=== PATIENT | male | born 1955 | race Caucasian/White ===

== ENCOUNTER → 2018-01-24 | Outpatient (CLI) | payer OTHER ==
[2018-01-24 14:44] LABS: BLOOD UREA NITROGEN 20 mg/dl (7-18); CALCIUM 8.5 mg/dl (8.5-10.1); CARBON DIOXIDE 29 mmol/L (21-32); CREATININE 1.08 mg/dl (0.60-1.40); GLUCOSE,FASTING 89 mg/dl (70-99); POTASSIUM 3.9 mmol/L (3.5-5.1); SODIUM 140 mmol/L (136-145)
== END | disposition home or self-care (01) ==
LOC: C.LABPBG 08:33
PROVIDERS: ATTEND Internal Medicine Cardiovascular Disease
DX: R07.89 Other chest pain (principal); R06.09 Other forms of dyspnea; R00.2 Palpitations; I51.9 Heart disease, unspecified; I34.0 Nonrheumatic mitral (valve) insufficiency; I36.1 Nonrheumatic tricuspid (valve) insufficiency; R60.0 Localized edema

== ENCOUNTER 2022-04-08 07:45 | Inpatient (IN) ==
[2022-04-08] MEDS ORDERED: PANTOprazole 80 MG in DEXTROSE 5% 100 ML IV ONE (08:01)
[2022-04-08] MEDS ORDERED: PANTOPRAZOLE BOLUS/DRIP 1 EACH IV STA (08:01)
--- NOTE | 2022-04-08 08:04 | Emergency Department Note ---
Impression & Plan GI bleed, Epigastric abdominal pain, Near syncope, Bright red blood per rectum ED Provider Note Name: RAKEL WEATHERS Age: 66 Sex: M Arrives Via: Ambulance Informant: Patient, mother, brother ED Provider: Glynn Tran MD Chief Complaint: Rectal bleeding Impression: As per impressions above Medical Decision Makin-year-old gentleman with a history of heart failure, hypertension arrives for evaluation of bloody stools. He has been having rectal bleeding for the last 12 hours. By exam he has bright red blood per rectum. He is not hypotensive tho ug is complaining some epigastric discomfort. He was empirically given some IV Protonix. Labs were obtained and reveal a anemia without significant drop from previous nor need for transfusion at this time. His CT of the abdomen pelvis reveals no evidence of acute surgical issue though there is what appears to be blood within the rectal vault. I discussed case with medical team who will evaluate and manage further. He did develop a near syncopal event and thus EKG and repeat hemoglobin were obtained which were unremarkable. Symptoms are not consistent with ACS or PE. Prior Medical Record and Triage/Nursing Notes reviewed by Me Additional history obtained from chart and family Differentials:Diverticulosis, AVM, coagulopathy, colitis, inflammatory bowel disease, malignancy, [place] tear, esophagitis, peptic ulcer disease, variceal bleed, gastritis, epistaxis, fissure, hemorrhoids, as well as other pathologies. Vital Signs: reviewed and remarkable for no significant abnormalities Interventions: Protonix IV, normal saline bolus Labs:Reviewed and remarkable for mild anemia Imaging:CT of the abdomen pelvis with IV contrast per radiology blood like products within the rectal vault see full read attached EKG:Per My Interpretation: Indication Weakness: NSR 84 bpm, qtc 444. No Ectopy. No Ischemia. Compared to EKG 08/27/05 non specific t wave depression laterally is new Cardiac/Tele Monitoring: Cardiac Monitoring: An Order was placed for continuous cardiac monitoring. The monitor shows a rate of 80 with a normal sinus rhythm. Consults:Dr Lucille WYNNE Hospitalist Plan: Disposition:Hospitalization. Condition: Good History of Present Illness:66-year-old gentleman arrives for evaluation of rectal bleeding. Patient notes he started having rectal bleeding last night. He has had multiple red bloody stools since the evening last night. Notes increasing epigastric pain throughout the night. Pain is epigastric and does not radiate. He denies any nausea, vomiting, syncope, chest pain, shortness of breath, headache, lightheadedness, back pain, leg swelling, bleeding/bruising other than stool, urinary symptoms, other concerning signs or symptoms. He took no medications prior to arrival. He denies any recent falls, trauma, injuries. He denies any regular alcohol use nor NSAID use. He denies any history of GI bleeding. He had his gallbladder out several years ago. Denies any recent antibiotics. Nothing makes better or worse. Patient is on aspirin 81 mg daily. ROS: See above HPI for pertinent positives & negatives. A total of 10 systems reviewed and were otherwise negative. Past Medical History:Hypertension, heart failure Past Surgical History:Ankle, Gallbladder Family History:Denies medical issues Social History:Lives with his mother, no smoking, no drug use, occasional alcohol use Home Medications:Aspirin, carvedilol, Centrum, furosemide, Lasix Allergies:NKDA Vitals:Blood Pressure: 126/84, Pulse 87, RR 19, T 36.6C, O2 98% on RA Physical Exam: GENERAL: Patient is anxious appearing and in mild distress. EYES: No scleral icterus, unremarkable pupils. ENT: Mucous membranes moist, no nasal congestion. NECK: No masses appreciated, nomeningismus, trachea is midline. RESPIRATORY: No dyspnea. Clear to auscultation and equal bilaterally. No wheeze, no rhonchi. CARDIOVASCULAR: Regular rate and rhythm.No murmurs, rubs, gallops appreciated. GASTROINTESTINAL: Mild epigastric TTP, Abdomen soft, non-tender, no peritonitis.Bowel sounds positive.No masses appreciated. RECTAL: Normal perirectal, no hemorrhoid externally. Large amount bright red blood in rectal vault. Enlarged firm non-tender prostate BACK: No midline tenderness, no CVA tenderness EXTREMITIES: Normal motion all extremities, no cyanosis, no edema. NEUROLOGIC: Alert and oriented, no acute motor or sensory deficits, no focal weakness, cranial nerves grossly intact. SKIN: No rash, no jaundice, no diaphoresis. PSYCH: Appropriate GCS: 15 ED Course: Times/Reassessments: Patient stable throughout most stated did have a bowel movement where he had a near syncopal event was diaphoretic and looked quite unwell. He was given a liter fluid EKG was obtained and he responded quickly to fluids feeling better. Glynn Tran MD Past Med/Surg History Surgical History Hx of cholecystectomy Family History Mother No problems noted. Denies family history of Clotting disorder Colorectal cancer Cancer Colonic polyp Social History Smoking Status: Never smoker Second Hand Exposure: No; Hx Alcohol Use: No Hx Substance Use: No Preferred Language: Bruneian Communication Ability: Impaired Insurance Producer Required: No Beliefs That Will Affect Care: None Current Living Situation: Parent Feels Safe at Home: Yes Assistive Devices: Denture - Upper and Glasses Allergies Allergies Allergy/AdvReac Type Severity Reaction Status Date / Time No Known Allergies Allergy Unknown Verified 08/27/05 12:47 [id number] Allergy Unknown Uncoded 11/12/02 20:23 N Allergy Unknown Uncoded 11/12/02 20:23 Home Meds Home Medications Medication Instructions Recorded Confirmed Centrum Silver Men 1 tab PO DAILY 04/08/22 04/08/22 Norvasc PO DAILY 04/08/22 aspirin 81 mg PO DAILY 04/08/22 04/08/22 carvedilol 3.125 mg tablet 3.125 mg PO DAILY 04/08/22 04/08/22 furosemide 20 mg tablet 20 mg PO DAILY 04/08/22 04/08/22 Results & Data (ED) Vital Signs Vital Signs - 24 hr 04/08/22 07:49 04/08/22 08:00 04/08/22 09:00 Temperature 36.6 C Temperature Source Oral Pulse Rate 87 Pulse Rate [Apical] 85 87 Respiratory Rate 19 20 22 Respiratory Effort / Characteristics Non-Labored Spontaneous Non-Labored Spontaneous Non-Labored Spontaneous Respiratory Depth Normal Normal Normal Blood Pressure 126/84 Blood Pressure [Left Arm] 124/63 117/81 Blood Pressure Mean 98 Blood Pressure Mean [Left Arm] 83 93 Pulse Oximetry 98 95 96 Oxygen Delivery Method Room Air Room Air Room Air Sepsis Recent Fever Within 48 Hours No Sepsis New/Unexplained Change in Mental Status No Sepsis Action Taken by Nursing No Action Required 04/08/22 10:00 Temperature Temperature Source Pulse Rate Pulse Rate [Apical] 81 Respiratory Rate 18 Respiratory Effort / Characteristics Non-Labored Spontaneous Respiratory Depth Normal Blood Pressure Blood Pressure [Left Arm] 114/75 Blood Pressure Mean Blood Pressure Mean [Left Arm] 88 Pulse Oximetry 97 Oxygen Delivery Method Room Air Sepsis Recent Fever Within 48 Hours Sepsis New/Unexplained Change in Mental Status Sepsis Action Taken by Nursing Laboratory Data Result diagrams: 04/08/22 11:55 04/08/22 07:58 Lab Results 04/08/22 04/08/22 04/08/22 Range/Units 07:58 07:58 07:58 WBC 7.01 (4.8-10.8) K/ul RBC 4.19 L (4.63-6.08) M/uL Hgb 12.7 L (14.0-18.0) g/dl Hct 38.9 L (40.1-51.0) % MCV 92.8 (80.0-100.0) fL MCH 30.3 (25.0-34.0) pg MCHC 32.6 (32.0-36.0) g/dL RDW Std Deviation 47.8 H (36.4-46.3) fL RDW Coeff of [place] 14.1 (11.5-14.5) % Plt Count 202 (130-400) K/uL MPV 10.6 (9.4-12.4) fL Immature Gran % (Auto) 0.4 % Neut % (Auto) 79.0 % Lymph % (Auto) 12.3 % Tama % (Auto) 6.0 % Eos % (Auto) 1.9 % Baso % (Auto) 0.4 % Neut # (Auto) 5.54 (1.4-6.5) K/uL Lymph # (Auto) 0.86 L (1.2-3.4) K/uL Tama # (Auto) 0.42 (0.24-0.82) K/uL Eos # (Auto) 0.13 (0-0.50) K/uL Baso # (Auto) 0.03 (0-0.2) K/uL Immature Gran # (Auto) 0.03 H (0.00-0.02) K/uL PT 10.9 (9.0-12.0) Seconds INR 1.0 (0.9-1.1) APTT 24.2 (21.0-31.0) Seconds PTT Ratio 0.9 Sodium 140 (136-145) mmol/L Potassium 4.5 (3.5-5.1) mmol/L Chloride 107 (98-107) mmol/L Carbon Dioxide 28 (21-32) mmol/L Anion Gap 5 (3-11) BUN 29 H (6-23) mg/dl Creatinine 1.17 (0.6-1.4) mg/dl Est Cr Clr Drug Dosing Not Reportable Est GFR ( Amer) 75.4 ml/min Est GFR (Non-Af Amer) 65.0 ml/min BUN/Creatinine Ratio 24.8 H (10-20) Glucose 147 H (70-99(Fasting)) mg/dl Calcium 8.5 (8.5-10.1) mg/dl Magnesium 2.0 (1.7-2.4) mg/dl Total Bilirubin 0.4 (0.2-1.0) mg/dl Direct Bilirubin 0.1 (0-0.2) mg/dl AST 18 (13-39) U/L ALT 19 (7-52) U/L Alkaline Phosphatase 62 (34-104) U/L Troponin I High Sens 2.9 (0-20) pg/ml Total Protein 6.6 (6.0-8.3) gm/dl Albumin 3.8 (3.4-5.0) gm/dl Lipase 21 (11-82) U/L SARS-CoV-2, RNA, NAAT (NEGATIVE) Blood Type Antibody Screen 04/08/22 04/08/22 Range/Units 08:15 08:32 WBC (4.8-10.8) K/ul RBC (4.63-6.08) M/uL Hgb (14.0-18.0) g/dl Hct (40.1-51.0) % MCV (80.0-100.0) fL MCH (25.0-34.0) pg MCHC (32.0-36.0) g/dL RDW Std Deviation (36.4-46.3) fL RDW Coeff of [place] (11.5-14.5) % Plt Count (130-400) K/uL MPV (9.4-12.4) fL Immature Gran % (Auto) % Neut % (Auto) % Lymph % (Auto) % Tama % (Auto) % Eos % (Auto) % Baso % (Auto) % Neut # (Auto) (1.4-6.5) K/uL Lymph # (Auto) (1.2-3.4) K/uL Tama # (Auto) (0.24-0.82) K/uL Eos # (Auto) (0-0.50) K/uL Baso # (Auto) (0-0.2) K/uL Immature Gran # (Auto) (0.00-0.02) K/uL PT (9.0-12.0) Seconds INR (0.9-1.1) APTT (21.0-31.0) Seconds PTT Ratio Sodium (136-145) mmol/L Potassium (3.5-5.1) mmol/L Chloride (98-107) mmol/L Carbon Dioxide (21-32) mmol/L Anion Gap (3-11) BUN (6-23) mg/dl Creatinine (0.6-1.4) mg/dl Est Cr Clr Drug Dosing Est GFR ( Amer) ml/min Est GFR (Non-Af Amer) ml/min BUN/Creatinine Ratio (10-20) Glucose (70-99(Fasting)) mg/dl Calcium (8.5-10.1) mg/dl Magnesium (1.7-2.4) mg/dl Total Bilirubin (0.2-1.0) mg/dl Direct Bilirubin (0-0.2) mg/dl AST (13-39) U/L ALT (7-52) U/L Alkaline Phosphatase (34-104) U/L Troponin I High Sens (0-20) pg/ml Total Protein (6.0-8.3) gm/dl Albumin (3.4-5.0) gm/dl Lipase (11-82) U/L SARS-CoV-2, RNA, NAAT NEGATIVE (NEGATIVE) Blood Type A Positive Antibody Screen NEGATIVE Administered Medications Pantoprazole Sodium 40 mg/ (Dextrose) 100 mls @ 20 mls/hr IV Q5H MYRANDA Stop: 05/08/22 08:29 Last Admin: 04/08/22 12:58 Dose: 8 mg/hr, 20 mls/hr Documented by: [id number] Infusion: 04/08/22 12:58 Dose: 8 mg/hr, 20 mls/hr Documented by: [id number] Admin: 04/08/22 08:45 Dose: 8 mg/hr, 20 mls/hr Documented by: [id number] Discontinued Medications Pantoprazole Sodium (Protonix Bolus/Drip) 0 mls @ 1 mls/hr IV ONE STA Stop: 04/08/22 08:02 Last Admin: 04/08/22 09:19 Dose: Not Given Documented by: [id number] Pantoprazole Sodium 80 mg/ (Dextrose) 120 mls @ 400 mls/hr IV NOW ONE Stop: 04/08/22 08:18 Last Infusion: 04/08/22 08:37 Dose: 0 mls/hr Documented by: [id number] Admin: 04/08/22 08:19 Dose: 400 mls/hr Documented by: [id number] Sodium Chloride (Nss 1000ml) 1,000 mls @ 999 mls/hr IV .Q1H1M ONE Stop: 04/08/22 12:40 Last Infusion: 04/08/22 12:49 Dose: 0 mls/hr Documented by: [id number] Admin: 04/08/22 11:48 Dose: 999 mls/hr Documented by: [id number] Ioversol (Optiray 320 100ml) 94 ml IV ONCE ONE Stop: 04/08/22 09:27 Last Admin: 04/08/22 09:28 Dose: 94 ml Documented by: [id number] Imaging Data Radiologist's Impression: Abdomen/Pelvis CT 04/08/22 08:01 CT abd pelvis IV con only CLINICAL HISTORY: rectal bleeding, epigastric pain TECHNIQUE: Helical axial images of the abdomen and pelvis were obtained and displayed. Automated dose lowering techniques and/or adjustment according to patient size were utilized for this exam. This exam was performed with intravenous contrast. CT DOSE: 1293.95 mGy.cm COMPARISON: None available at the time of this dictation. FINDINGS: Lower chest: No acute abnormality Liver: A right hepatic cyst is seen. Gallbladder and biliary tree: Patient is status post cholecystectomy. Phys iologic prominence of the biliary ducts is noted. Pancreas: Unremarkable, no focal lesions. Spleen: Unremarkable. Adrenals: Unremarkable. Kidneys and ureters: Left parapelvic cysts are seen. Bladder: Unremarkable. Reproductive organs: Unremarkable. Bowel: Inspissated mixed attenuation material is in the rectum. Diverticulosis is seen without evidence of diverticulitis. The appendix is normal. There is a small hiatal hernia. Lymph nodes Retroperitoneal: Unremarkable. Mesenteric: Unremarkable. Pelvic: Unremarkable. Peritoneum: Normal. Vessels: Unremarkable. Abdominal wall: Left fat containing inguinal hernia. Bones: Degenerative changes in the visualized spine. A few bone islands are seen. 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 IMPRESSION: Mixed attenuation collection in the rectum is seen. This may represent inspissated hemorrhagic material. An underlying mass cannot be entirely excluded. Correlation with digital rectal exam and/or colonoscopy can be performed, alternatively follow-up CT can be performed. No acute abnormalities to explain epigastric pain. ACT 112: Negative or not required by law. Electronically signed by: Scott Jo M.D. 04/08/2022 9:40 AM Discharge Plan Visit Data Chief Complaint: Rectal Bleed Stated Complaint: RECTAL BLEED, AB PAIN ED Provider: Glynn Tran Discharge Problem: GI bleed, Epigastric abdominal pain, Near syncope, Bright red blood per rectum Patient Disposition: Admitted As Inpatient Discharge Instructions Interventions: ED Discharge Assessment Last Done: 04/08/22 12:26
[2022-04-08 08:10] LABS: Basophils # (auto) 0.03 K/uL (0-0.2); Basophils % (auto) 0.4 %; Eosinophils # (auto) 0.13 K/uL (0-0.50); Eosinophils % (auto) 1.9 %; Hematocrit (blood only) 38.9 % (40.1-51.0); Hemoglobin 12.7 g/dl (14.0-18.0); Immature Granulocytes # (auto) 0.03 K/uL (0.00-0.02); Immature Granulocytes % (auto) 0.4 %; Lymphocytes # (auto) 0.86 K/uL (1.2-3.4); Lymphocytes % (auto) 12.3 %; Mean Corpuscular Hemoglobin 30.3 pg (25.0-34.0); Mean Corpuscular Hgb Conc 32.6 g/dL (32.0-36.0); Mean Corpuscular Volume 92.8 fL (80.0-100.0); Mean Platelet Volume 10.6 fL (9.4-12.4); Monocytes # (auto) 0.42 K/uL (0.24-0.82); Neutrophils # (auto) 5.54 K/uL (1.4-6.5); Platelet Count 202 K/uL (130-400); RDW Coefficient of Variation 14.1 % (11.5-14.5); RDW Standard Deviation 47.8 fL (36.4-46.3); Red Blood Count 4.19 M/uL (4.63-6.08); White Blood Count 7.01 K/ul (4.8-10.8)
[2022-04-08 08:25] LABS: Partial Thromboplastin Ratio 0.9; Partial Thromboplastin Time 24.2 Seconds (21.0-31.0); Prothrombin Time 10.9 Seconds (9.0-12.0)
[2022-04-08 08:29] LABS: Alanine Aminotransferase 19 U/L (7-52); Albumin Level 3.8 gm/dl (3.4-5.0); Alkaline Phosphatase 62 U/L (34-104); Anion Gap 5 (3-11); Aspartate Aminotransferase 18 U/L (13-39); BUN Creatinine Ratio 24.8 (10-20); Bilirubin Direct 0.1 mg/dl (0-0.2); Bilirubin,Total 0.4 mg/dl (0.2-1.0); Blood Urea Nitrogen 29 mg/dl (6-23); Calcium 8.5 mg/dl (8.5-10.1); Carbon Dioxide 28 mmol/L (21-32); Chloride 107 mmol/L (98-107); Est GFR (African American) 75.4 ml/min; Glucose 147 mg/dl (70-99(Fasting)); Lipase 21 U/L (11-82); Potassium 4.5 mmol/L (3.5-5.1); Sodium 140 mmol/L (136-145); Total Protein 6.6 gm/dl (6.0-8.3)
[2022-04-08 08:35] LABS: Troponin I High Sensitivity 2.9 pg/ml (0-20)
[2022-04-08] MEDS: PANTOprazole 40 MG in DEXTROSE 5% 100 ML IV SCH ×4 (08:45→23:33)
[2022-04-08] MEDS ORDERED: OPTIRAY 320 100ml IV ONE (09:26)
--- NOTE | 2022-04-08 09:41 | CT Scan Report ---
CT abd pelvis IV con only CLINICAL HISTORY: rectal bleeding, epigastric pain TECHNIQUE: Helical axial images of the abdomen and pelvis were obtained and displayed. Automated dose lowering techniques and/or adjustment according to patient size were utilized for this exam. This e xam was performed with intravenous contrast. CT DOSE: 1293.95 mGy.cm COMPARISON: None available at the time of this dictation. FINDINGS: Lower chest: No acute abnormality Liver: A right hepatic cyst is seen. Gallbladder and biliary tree: Patient is status post cholecystectomy. Physiologic prominence of the b iliary ducts is noted. Pancreas: Unremarkable, no focal lesions. Spleen: Unremarkable. Adrenals: Unremarkable. Kidneys and ureters: Left parapelvic cysts are seen. Bladder: Unremarkable. Reproductive organs: Unremarkable. Bowel: Inspissated mixed attenuation material is in the rectum. Diverticulosis is seen without eviden ce of diverticulitis. The appendix is normal. There is a small hiatal hernia. Lymph nodes Retroperitoneal: Unremarkable. Mesenteric: Unremarkable. Pelvic: Unremarkable. Peritoneum: Normal. Vessels: Unremarkable. Abdominal wall: Left fat containing inguinal hernia. Bones: Degenerative changes in the visualized spine. A few bone islands are seen. 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 IMPRESSION: Mixed attenuation collection in the rectum is seen. This may represent inspissated hemorrhagic materi al. An underlying mass cannot be entirely excluded. Correlation with digital rectal exam and/or colon oscopy can be performed, alternatively follow-up CT can be performed. No acute abnormalities to expla in epigastric pain. ACT 112: Negative or not required by law. Electronically signed by: Scott Jo M.D. 04/08/2022 9:40 AM
--- NOTE | 2022-04-08 11:08 | History & Physical Report ---
Date of Service April 08, 2022 Assessment & Plan (1) GI bleed: Plan: - H&H upon arrival 12.7/38.9, normocytic anemia. No reference labs for estimation of patient's baseline. - Suspect source is lower given BRB per rectum, possibly diverticular disease. STEPHEN without active hemorrhoidal bleeding, no obvious masses felt. Brisk UGI bleed less likely, blood loss has been going on for 12 hours now he is hemodynamically stable in the ED, however he does have BUN of 29 and complaining of episodic gastric pain, therefore will be continue Protonix drip started in ED. - Trend H/H, type and screen obtained. Will obtain consent in case there is need for transfusion during admission. - Case discussed with GI, patient may have clear liquids for now, will make him n.p.o. at midnight and start GoLytely prep in anticipation of EGD and colonoscopy tomorrow AM. Repeat H/H 11 AM: 11.7 (2) Heart failure: Plan: - Presumed, given medication history of Lasix 20 mg daily, Coreg 3.125 mg daily, baby aspirin daily. - Patient did not have these medications this morning, will hold for now given ongoing blood loss. Plan: - Admit to PC[facility]. - SCDs for DVT PPx, chemo PPx contraindicated. - Full code. History of Present Illness Chief Complaint: Bright red blood per rectum for 12 hours Primary Care Provider: Lazaro Franco Eren Olmos is a 66-year-old male with cognitive impairment and presumed heart failure who presents today with complaints of bloody BMs for the last 12 hours. Patient states last evening before bed, he had a bowel movement and reported to his mother there was a large amount of bright red blood in it. His mother woke up to use the bathroom several times at the night and found the toilet filled with large amount of bright red blood on multiple occasions. This is associated with epigastric pain that does not radiate. Patient has apparently been complaining of mild epigastric pain intermittently for the past month, and about 1 month ago did have an episode of bright red blood per rectum, however it is unclear how often this is happened over the past month. Since arrival to the ED, he is started to feel mildly dizzy and a little bit short of breath, but denies chest pain or palpitations. He does take a baby aspirin daily, but has not been taking any NSAIDs and denies any alcohol use. Per family, patient experienced a similar event several years ago, at that time colonoscopy was performed and no bleeding source was identified. No personal family history of GI malignancies, bleeding disorders. Patient is not aware that he has any hemorrhoids. A STEPHEN was performed by ED provider, no active bleeding hemorrhoid was identified and no obvious mass was felt. In ED, he is hemodynamically stable. Labs significant for an hemoglobin of 12.7, MCV and MCHC indicative of normocytic anemia. BUN 29. All other labs within normal limits. CT A/P showed mixed attenuation collection in the rectum which may represent hemorrhagic material, underlying mass cannot be excluded. ED Course: PPI drip started, hospital service consulted. After my initial evaluation of patient, he was ambulated into the bathroom and had what seems to be a vasovagal syncopal episode. An urgent troponin and EKG were ordered, as well as repeat Hgb and 1L NS bolus. Repeat trop 2.9 ( same as initial), Hgb 11.7. Allergies Allergy/AdvReac Type Severity Reaction Status Date / Time No Known Allergies Allergy Unknown Verified 08/27/05 12:47 [id number] Allergy Unknown Uncoded 11/12/02 20:23 N Allergy Unknown Uncoded 11/12/02 20:23 Home Medications Medication Instructions Recorded Confirmed Type Centrum Silver Men 1 tab PO DAILY 04/08/22 04/08/22 History aspirin 81 mg PO DAILY 04/08/22 04/08/22 History carvedilol 3.125 mg tablet 3.125 mg PO DAILY 04/08/22 04/08/22 History furosemide 20 mg tablet 20 mg PO DAILY 04/08/22 04/08/22 History Past Med/Surg History Surgical History Hx of cholecystectomy Family History Mother No problems noted. Denies family history of Clotting disorder Colorectal cancer Cancer Colonic polyp Social History Smoking Status: Never smoker Preferred Language: Kazakh Feels Safe at Home: Yes Review of Systems Review of Systems: Constitutional: Lightheaded since arrival to ED; no fever/chills, weakness, fatigue, myalgias, anorexia, night sweats Eyes: No diplopia, no worsening or blurred vision ENT: normal hearing, no trouble swallowing Respiratory: No cough, sputum, dyspnea at rest or on exertion Cardiovascular: No chest pain, tightness or palpitations Abdomen: Bright red blood with BMs intermittently x1 month, persistent for last 12 hours; with reported epigastric pain x1 month and intermittent loose stools; no nausea, vomiting, melena : Denies dysuria, hematuria, increased urgency/frequency, urinary retention Musculoskeletal: No joint pain, calf pain, swelling Neurologic: No weakness, numbness/tingling, or balance problems Psychiatric: No anxiety or depression Skin: No rash or itch Physical Exam Physical Exam: General: awake, alert, no apparent distress Head: Normocephalic, atraumatic ENT: PERRL, EOMI, no pharyngeal exudate, mucous membranes moist Chest: Clear to auscultation, on room air, no adventitious breath sounds Cardiac: Regular rate and rhythm, no murmur, no JVD, normal peripheral pulses, good capillary refill Abdominal: TTP in central/epigastric region; NABS x 4 quadrants, soft, otherwise nontender to palpation, no rebound, guarding or tenderness Extremities: Normal inspection, no peripheral edema or erythema, calfs nontender to palpation Psych: Normal mood and affect Neuro: AAO x 3, strength intact bilaterally and rated 5/5, no motor deficits, speech is clear, no peripheral sensory deficits Skin: no rash or erythema Results & Data Results & Data ([facility]) Vital Signs (Past 12 Hours) Vital Signs Temp Pulse Pulse Resp BP BP Pulse Ox 04/08/22 10:00 81 18 114/75 97 04/08/22 09:00 87 22 117/81 96 04/08/22 08:00 85 20 124/63 95 04/08/22 07:49 36.6 C 87 19 126/84 98 Laboratory Results Abnormal lab results 04/08/22 04/08/22 Range/Units 07:58 07:58 RBC 4.19 L (4.63-6.08) M/uL Hgb 12.7 L (14.0-18.0) g/dl Hct 38.9 L (40.1-51.0) % RDW Std Deviation 47.8 H (36.4-46.3) fL Lymph # (Auto) 0.86 L (1.2-3.4) K/uL Immature Gran # (Auto) 0.03 H (0.00-0.02) K/uL BUN 29 H (6-23) mg/dl BUN/Creatinine Ratio 24.8 H (10-20) Glucose 147 H (70-99(Fasting)) mg/dl Diagnostic Findings Abdomen/Pelvis CT 04/08/22 08:01 CT abd pelvis IV con only CLINICAL HISTORY: rectal bleeding, epigastric pain TECHNIQUE: Helical axial images of the abdomen and pelvis were obtained and displayed. Automated dose lowering techniques and/or adjustment according to patient size were utilized for this exam. This exam was performed with intravenous contrast. CT DOSE: 1293.95 mGy.cm COMPARISON: None available at the time of this dictation. FINDINGS: Lower chest: No acute abnormality Liver: A right hepatic cyst is seen. Gallbladder and biliary tree: Patient is status post cholecystectomy. Physiologic prominence of the biliary ducts is noted. Pancreas: Unremarkable, no focal lesions. Spleen: Unremarkable. Adrenals: Unremarkable. Kidneys and ureters: Left parapelvic cysts are seen. Bladder: Unremarkable. Reproductive organs: Unremarkable. Bowel: Inspissated mixed attenuation material is in the rectum. Diverticulosis is seen without evidence of diverticulitis. The appendix is normal. There is a small hiatal hernia. Lymph nodes Retroperitoneal: Unremarkable. Mesenteric: Unremarkable. Pelvic: Unremarkable. Peritoneum: Normal. Vessels: Unremarkable. Abdominal wall: Left fat containing inguinal hernia. Bones: Degenerative changes in the visualized spine. A few bone islands are seen. 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 IMPRESSION: Mixed attenuation collection in the rectum is seen. This may represent inspissated hemorrhagic material. An underlying mass cannot be entirely excluded. Correlation with digital rectal exam and/or colonoscopy can be performed, alternatively follow-up CT can be performed. No acute abnormalities to explain epigastric pain. ACT 112: Negative or not required by law. Electronically signed by: Scott Jo M.D. 04/08/2022 9:40 AM PG Care Time/CCT Total # of Minutes Spent Total Time Spent with Patient: Total time spent is greater than 50% in coordination of care (as documented) at patient's floor/unit and/or counseling patient: Coding Level of Care Code 52557 Initial Inpt Care Lvl 2 Diagnoses GI bleed K92.2 Heart failure I50.9
[2022-04-08] MEDS ORDERED: SODIUM CHLORIDE 0.9% 1000ML 1,000 ML IV ONE (11:40)
--- NOTE | 2022-04-08 12:19 | Electrocardiogram Report ---
Test Reason : Blood Pressure : / mmHG Vent. Rate : 084 BPM Atrial Rate : 084 BPM P-R Int : 140 ms QRS Dur : 090 ms QT Int : 376 ms P-R-T Axes : 055 -01 003 degrees QTc Int : 444 ms Normal sinus rhythm Low voltage QRS Abnormal ECG When compared with ECG of 27-AUG-2005 13:29, Nonspecific T wave abnormality now evident in Anterolateral leads Confirmed by Deric Franco ([id number]) on 04/08/2022 12:19:13 PM Referred By: REFERRED SELF Confirmed By:Abdirahman Franco
--- NOTE | 2022-04-08 12:29 | Gastrointestinal Consultation ---
Date of Consultation April 08, 2022 Assessment & Plan (1) GI bleed: (2) Epigastric abdominal pain: painless hematochezia with epigastric pains and abnormal CT: concern for malignancy vs. diverticular bleed vs. PUD recs: agree with PPI drip for now clear liquid diet today, NPO post midnight except for prep golytely 4 L prep starting at 6 pm tonight EGD and colonoscopy tomorrow to further evaluate supportive care, IVFs, trend H/H Thank you for allowing me to participate in the care of this patient History of Present Illness History of Present Illness 66-year-old male with cognitive impairment and CHF here with painless hematochezia. this started last night and described as voluminous blood per rectum pouring out. He has not had this degree of hematochezia before, just spotting on toilet paper in the past. No NSAID abuse, ETOH abuse, smoking, family hx colorectal cancer nor gastric cancer nor PUD. He had a colonoscopy 6-7 years ago that was unremarkable. He also notes constant epigastric pains that feel crampy but do not improve with bowel movements. Also with some dizziness. hgb noted to be 11.7 with BUN 29, CT shows blood in the rectum, mass cannot be excluded. CBC and CMP reviewed, VSS. Allergies Allergy/AdvReac Type Severity Reaction Status Date / Time No Known Allergies Allergy Unknown Verified 08/27/05 12:47 [id number] Allergy Unknown Uncoded 11/12/02 20:23 N Allergy Unknown Uncoded 11/12/02 20:23 Home Medications Medication Instructions Recorded Confirmed Type Centrum Silver Men 1 tab PO DAILY 04/08/22 04/08/22 History aspirin 81 mg PO DAILY 04/08/22 04/08/22 History carvedilol 3.125 mg tablet 3.125 mg PO DAILY 04/08/22 04/08/22 History furosemide 20 mg tablet 20 mg PO DAILY 04/08/22 04/08/22 History Patient History Surgical History Hx of cholecystectomy Family History Mother No problems noted. Denies family history of Clotting disorder Colorectal cancer Cancer Colonic polyp Social History Smoking Status: Never smoker Preferred Language: Wolof Feels Safe at Home: Yes Review of Systems Constitutional: no fever, no chills and no weight loss Eyes: as per Subjective / HPI Ear, Nose, Mouth, Throat: as per Subjective / HPI Respiratory: no dyspnea and no dyspnea on exertion Cardiovascular: no chest pain and no palpitations Gastrointestinal: as per Subjective / HPI Musculoskeletal: no joint pain and no swelling Integumentary: no rash and no lesions Neurologic: no numbness and no paresthesia Psychiatric: no depression and no anxiety Endocrine: no fatigue Hematologic / Lymphatic: no easy bleeding and no easy bruising Physical Exam Constitutional: WD/WN, vitals as above Eyes: EOM intact bilaterally Neck: normal visual inspection Respiratory: normal respiratory effort, lungs clear to auscultation Cardiovascular: RRR, no murmur, no edema Gastrointestinal (Abdomen): Inspection/Auscultation: abdomen normal to inspection; abdomen not distended Percussion/Palpation: abdomen soft; abdomen nontender and no hepatosplenomegaly Musculoskeletal: Extremities: no cyanosis Gait: normal gait Skin: no rashes, warm and dry Neurologic: moves all extremities Psychiatric: A+Ox3, euthymic affect Results & Data ([facility]) Vital Signs (Past 12 Hours) Vital Signs Temp Pulse Pulse Resp BP BP Pulse Ox 04/08/22 10:00 81 18 114/75 97 04/08/22 09:00 87 22 117/81 96 04/08/22 08:00 85 20 124/63 95 04/08/22 07:49 36.6 C 87 19 126/84 98 PG Care Time/CCT Total # of Minutes Spent Total Time Spent with Patient: Total time spent is greater than 50% in coordination of care (as documented) at patient's floor/unit and/or counseling patient: Coding Level of Care Code 41874 Inpt Consult Level 4 Diagnoses GI bleed K92.2 Epigastric abdominal pain R10.13
[2022-04-08] MEDS ORDERED: ACETAMINOPHEN 325 MG TAB PO PRN (12:59)
[2022-04-08] MEDS ORDERED: ONDANSETRON INJ 2 MG/ML 2 ML VIAL IV PRN (12:59)
[2022-04-08] MEDS ORDERED: POLYETHYLENE (MIRALAX) 17 GM PACK PO PRN (12:59)
[2022-04-08] MEDS ORDERED: SODIUM CHLORIDE 0.9% 250 ML IV PRN ×2 (14:36→23:32)
[2022-04-08] MEDS ORDERED: LACTATED RINGER'S 500 ML IV ONE (14:48)
[2022-04-08 15:05] LABS: Hematocrit (blood only) 31.6 % (40.1-51.0); Hemoglobin 10.4 g/dl (14.0-18.0)
[2022-04-08] MEDS: LAVAGE SOLUTION 4000ML PO SCH (18:27)
[2022-04-08] MEDS: LACTATED RINGER'S 1,000 ML IV SCH ×2 (19:00→23:00)
[2022-04-08 20:00] LABS: Hematocrit (blood only) 33.5 % (40.1-51.0)
[2022-04-08 23:26] LABS: Hematocrit (blood only) 29.4 % (40.1-51.0); Hemoglobin 9.9 g/dl (14.0-18.0)
[2022-04-09 02:12] LABS: Basophils # (auto) 0.01 K/uL (0-0.2); Basophils % (auto) 0.2 %; Eosinophils # (auto) 0.02 K/uL (0-0.50); Eosinophils % (auto) 0.4 %; Hemoglobin 9.3 g/dl (14.0-18.0); Immature Granulocytes # (auto) 0.02 K/uL (0.00-0.02); Immature Granulocytes % (auto) 0.4 %; Lymphocytes # (auto) 1.57 K/uL (1.2-3.4); Lymphocytes % (auto) 27.5 %; Mean Corpuscular Hemoglobin 29.5 pg (25.0-34.0); Mean Corpuscular Hgb Conc 33.2 g/dL (32.0-36.0); Mean Corpuscular Volume 88.9 fL (80.0-100.0); Mean Platelet Volume 9.9 fL (9.4-12.4); Monocytes # (auto) 0.45 K/uL (0.24-0.82); Monocytes % (auto) 7.9 %; Neutrophils # (auto) 3.63 K/uL (1.4-6.5); Neutrophils % (auto) 63.6 %; Platelet Count 177 K/uL (130-400); RDW Coefficient of Variation 15.9 % (11.5-14.5); RDW Standard Deviation 51.6 fL (36.4-46.3); Red Blood Count 3.15 M/uL (4.63-6.08)
[2022-04-09 02:49] LABS: BUN Creatinine Ratio 21.1 (10-20); Calcium 7.3 mg/dl (8.5-10.1); Creatinine Clr Calc Pharmacy 102.2 ml/min; Est GFR (African American) 103.5 ml/min; Est GFR (Non-African American) 89.3 ml/min; Potassium 3.6 mmol/L (3.5-5.1)
[2022-04-09] MEDS: PANTOprazole 40 MG in DEXTROSE 5% 100 ML IV SCH ×2 (05:08→12:26)
[2022-04-09] MEDS: LAVAGE SOLUTION 4000ML PO SCH ×2 (06:13→12:26)
[2022-04-09] MEDS ORDERED: PROPOFOL IV EMULSION 10 MG/ML 20 ML VIAL IV ONE ×2 (08:14→09:33)
[2022-04-09] MEDS ORDERED: LIDOCAINE 2% MPF LOCAL 5 ML VIAL INFIL ONE (08:14)
--- NOTE | 2022-04-09 08:14 | Anesthesiology Consultation ---
Date of Service April 09, 2022 History Surgery Operation Date: 04/09/22 16:30 Proposed Procedures p Colonoscopy EGD Dr. Jaylyn De La O MD Height/Weight Height: 6 ft Weight: 106.1 kg Allergies Allergy/AdvReac Type Severity Reaction Status Date / Time No Known Allergies Allergy Unknown Verified 08/27/05 12:47 [id number] Allergy Unknown Uncoded 11/12/02 20:23 N Allergy Unknown Uncoded 11/12/02 20:23 Medications Home Medications Medication Instructions Recorded Confirmed Last Taken Centrum Silver Men 1 tab PO DAILY 04/08/22 04/08/22 04/07/22 09:00 Norvasc PO DAILY 04/08/22 Unknown aspirin 81 mg PO DAILY 04/08/22 04/08/22 04/07/22 09:00 carvedilol 3.125 mg tablet 3.125 mg PO DAILY 04/08/22 04/08/22 04/07/22 09:00 furosemide 20 mg tablet 20 mg PO DAILY 04/08/22 04/08/22 04/07/22 09:00 Active Medications Generic Name Dose Route Start Last Admin Trade Name Milo PRN Reason Stop Dose Admin Pantoprazole Sodium 40 mg/ 100 mls @ 20 mls/hr 04/08/22 08:30 04/09/22 05:08 Dextrose IV 05/08/22 08:29 8 mg/hr Q5H MYRANDA 20 mls/hr Administration 8 MG/HR Lactated Ringer's 1,000 mls @ 125 mls/hr 04/08/22 18:30 04/09/22 08:09 Lr IV 05/08/22 18:29 125 mls/hr .Q8H MYRANDA Infusion Polyethylene Glycol/Electrolytes 8 dose 04/08/22 18:00 04/09/22 06:13 Lavage Solution 4000ml PO 04/09/22 18:00 8 dose TODAY@06,18 MYRANDA Administration Past Medical History Medical History (Updated 04/09/22 @ 08:13 by Patience Cohen MD) Bright red blood per rectum Epigastric abdominal pain GI bleed Heart failure Near syncope Past Family History Family History Mother No problems noted. Denies family history of Clotting disorder Colorectal cancer Cancer Colonic polyp Past Surgical History Surgical History Hx of cholecystectomy Social History Smoking Status: Never smoker Do You Dip or Chew Tobacco: No Hx Alcohol Use: No Hx Substance Use: No Physical Exam Vital Signs Last Vital Signs Temp 36.6 C 04/09/22 07:23 Pulse 79 04/09/22 07:23 Resp 18 04/09/22 07:23 BP 113/72 04/09/22 07:23 Pulse Ox 98 04/09/22 07:23 Testing Laboratory Results 04/09/22 02:03 04/09/22 02:03 PT 10.9 Seconds (9.0-12.0) 04/08/22 07:58 INR 1.0 (0.9-1.1) 04/08/22 07:58 APTT 24.2 Seconds (21.0-31.0) 04/08/22 07:58 Blood Type A Positive 04/08/22 08:15 Antibody Screen NEGATIVE 04/08/22 08:15 Electrocardiogram Date: 04/08/22 Normal sinus rhythm Low voltage QRS Abnormal ECG When compared with ECG of 27-AUG-2005 13:29, Nonspecific T wave abnormality now evident in Anterolateral leads Confirmed by Deric Franco ([id number]) on 04/08/2022 12:19:13 PM
--- NOTE | 2022-04-09 08:26 | History & Physical Bridge Note ---
Date of Service April 09, 2022 History & Physical Bridge Note I have examined the patient, reviewed the History & Physical and in the interval since the performance of the History & Physical I have noted the following changes of clinical significance: no changes noted Proceed with EGD. proceed with colonoscopy. risks/benefits and procedure discussed with patient, who agrees to proceed
[2022-04-09 08:40] LABS: Hematocrit (blood only) 30.7 % (40.1-51.0); Hemoglobin 10.4 g/dl (14.0-18.0)
--- NOTE | 2022-04-09 09:55 | GI REPORT ---
Patient Name: Rohan Olmos Procedure Date: 04/09/2022 8:42 AM Date of : 1955 Admit Type: Inpatient Age: 66 Gender: Male Attending MD: Uziel De La O MD Procedure: Upper GI endoscopy Providers: Uziel De La O MD Referring MD: Ashley Bain Md Indications: Hematochezia Medicines: Monitored Anesthesia Care Complications: No immediate complications. Estimated blood loss: None. Estimated Blood Loss: Estimated blood loss: none. Procedure: Pre-Anesthesia Assessment: - Prior Anticoagulants: The patient has taken no previous anticoagulant or antiplatelet agents. - ASA Grade Assessment: II - A patient with mild systemic disease. After obtaining informed consent, the endoscope was passed under direct vision. Throughout the procedure, the patient's blood pressure, pulse, and oxygen saturations were monitored continuously. The Endoscope was introduced through the mouth, and advanced to the second part of duodenum. The upper GI endoscopy was accomplished without difficulty. The patient tolerated the procedure well. Findings: There were esophageal mucosal changes suspicious for short-segment Hendrix's esophagus present at the gastroesophageal junction. The maximum longitudinal extent of these mucosal changes was 0.5 cm in length. Mucosa was biopsied with a cold forceps for histology in a targeted manner at the gastroesophageal junction. One specimen bottle was sent to pathology. Estimated blood loss: none. A small hiatal hernia was present. The entire examined stomach was normal. The duodenal bulb and second portion of the duodenum were normal. 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 Biopsied. - Small hiatal hernia. - Normal stomach. - Normal duodenal bulb and second portion of the duodenum. Recommendation: - Return patient to [facility] for ongoing care. - Advance diet as tolerated today. - Await pathology results. Uziel De La O MD 04/09/2022 9:55:21 AM This report has been signed electronically. Note Initiated On: 04/09/2022 8:42 AM Number of Addenda: 0 I attest to the content of the Intraoperative Record and orders documented therein, exceptions below {[id number]}
--- NOTE | 2022-04-09 09:59 | Anesthesiology Progress Note ---
Date of Service April 09, 2022 Anesthesia Post Procedure Vital Signs Vital Signs: Temp Pulse Pulse Pulse Resp BP BP 04/09/22 09:52 71 71 18 125/65 04/09/22 09:37 82 16 113/66 04/09/22 08:50 37.3 C 86 18 109/70 04/09/22 08:48 37.3 C 86 18 109/70 04/09/22 07:23 36.6 C 79 18 113/72 04/09/22 07:11 36.6 C 79 18 113/72 04/09/22 06:00 80 16 103/67 04/09/22 05:47 36.7 C 79 16 103/67 04/09/22 05:30 80 16 100/64 04/09/22 05:17 36.7 C 84 16 101/64 04/09/22 05:02 36.7 C 84 16 101/64 04/09/22 05:00 36.7 C 76 16 101/64 04/09/22 04:45 36.4 C L 90 15 99/65 L 04/09/22 03:30 36.8 C 84 18 98/61 L 04/09/22 03:00 91 H 99/65 L 04/09/22 02:30 90 102/68 04/09/22 02:00 86 111/71 04/09/22 01:30 93 H 105/71 04/09/22 01:00 94 H 107/73 04/09/22 00:30 89 102/69 04/09/22 00:00 81 104/70 04/08/22 23:30 36.8 C 89 18 106/70 04/08/22 23:00 89 109/74 04/08/22 22:30 97 H 112/72 04/08/22 22:14 99 H 04/08/22 22:00 91 H 107/72 04/08/22 21:30 96 H 93/66 L 04/08/22 21:00 99 H 111/74 04/08/22 20:30 102 H 115/81 04/08/22 20:00 102 H 115/80 04/08/22 19:35 98 H 112/79 04/08/22 19:01 36.6 C 92 H 18 114/79 04/08/22 19:00 99 H 109/78 04/08/22 18:30 99 H 16 110/80 04/08/22 18:24 36.8 C 104 H 18 110/80 04/08/22 17:24 36.4 C L 95 H 16 103/73 04/08/22 17:23 36.4 C L 95 H 16 103/73 04/08/22 16:57 36.4 C L 97 H 16 99/69 L 04/08/22 16:54 36.5 C 93 H 16 99/64 L 04/08/22 16:39 36.5 C 96 H 16 107/65 04/08/22 16:20 36.4 C L 96 H 16 100/71 04/08/22 15:45 93 H 108/74 04/08/22 15:19 36.4 C L 96 H 18 104/74 04/08/22 14:20 98 H 04/08/22 14:00 35.5 C L 100 H 18 92/62 L 04/08/22 13:20 35.5 C L 81 16 125/79 04/08/22 12:56 35.5 C L 88 18 123/79 04/08/22 12:54 83 04/08/22 10:00 81 18 114/75 Pulse Ox 04/09/22 09:52 99 04/09/22 09:37 97 04/09/22 08:50 98 04/09/22 08:48 98 04/09/22 07:23 98 04/09/22 07:11 98 04/09/22 06:00 97 04/09/22 05:47 97 04/09/22 05:30 97 04/09/22 05:17 97 04/09/22 05:02 97 04/09/22 05:00 97 04/09/22 04:45 95 04/09/22 03:30 96 04/09/22 03:00 04/09/22 02:30 04/09/22 02:00 04/09/22 01:30 04/09/22 01:00 04/09/22 00:30 04/09/22 00:00 04/08/22 23:30 97 04/08/22 23:00 04/08/22 22:30 04/08/22 22:14 04/08/22 22:00 04/08/22 21:30 04/08/22 21:00 04/08/22 20:30 04/08/22 20:00 04/08/22 19:35 04/08/22 19:01 100 04/08/22 19:00 04/08/22 18:30 99 04/08/22 18:24 98 04/08/22 17:24 97 04/08/22 17:23 97 04/08/22 16:57 97 04/08/22 16:54 97 04/08/22 16:39 96 04/08/22 16:20 96 04/08/22 15:45 04/08/22 15:19 97 04/08/22 14:20 04/08/22 14:00 95 04/08/22 13:20 100 04/08/22 12:56 100 04/08/22 12:54 04/08/22 10:00 97 Pain Intensity Lower Medial Abdomen: Pain Intensity: 5 Transfer of Care Handoff Completed per policy Notes Mental Status: alert / awake / arousable and participated in evaluation Patient Amnestic to Procedure: Yes Nausea / Vomiting: adequately controlled Pain: adequately controlled Airway Patency, RR, SpO2: stable & adequate BP & HR: stable & adequate Hydration State: stable & adequate Anesthetic Complications: no major complications apparent and Pt Satisfied with anesthetic care
--- NOTE | 2022-04-09 10:00 | GI REPORT ---
Patient Name: Rohan Olmos Procedure Date: 04/09/2022 8:44 AM Date of : 1955 Admit Type: Inpatient Age: 66 Gender: Male Attending MD: Uziel De La O MD Procedure: Colonoscopy Providers: Uziel De La O MD Referring MD: Ashley Bain Md Indications: Hematochezia Medicines: Monitored Anesthesia Care Complications: No immediate complications. Estimated blood loss: None. Estimated Blood Loss: Estimated blood loss: none. Procedure: Pre-Anesthesia Assessment: - Prior Anticoagulants: The patient has taken no previous anticoagulant or antiplatelet agents. - ASA Grade Assessment: II - A patient with mild systemic disease. After I obtained informed consent, the scope was passed under direct vision. Throughout the procedure, the patient's blood pressure, pulse, and oxygen saturations were monitored continuously. The Scope was introduced through the anus and advanced to the cecum, identified by appendiceal orifice and ileocecal valve. The colonoscopy was performed without difficulty. The patient tolerated the procedure well. The quality of the bowel preparation was adequate to identify polyps 6 mm and larger in size. Findings: A single large localized angioectasia vs. solitary rectal ulcer with stigmata of recent bleeding was found in the rectum. Coagulation for hemostasis using argon plasma at 1.2 liters/minute and 35 conti was successful. For hemostasis, one hemostatic clip was successfully placed. There was no bleeding at the end of the procedure. Biopsies were taken with a cold forceps for histology. Estimated blood loss: none. Multiple small and large-mouthed diverticula were found in the sigmoid colon and descending colon. Impression: - A single recently bleeding colonic angioectasia. Treated with argon plasma coagulation (APC). Clip was placed. Biopsied. - Diverticulosis in the sigmoid colon and in the descending colon. Recommendation: - Return patient to [facility] for ongoing care. - Advance diet as tolerated today. - Await pathology results. -avoid NSAIDS -protonix 40 mg daily Uziel De La O MD 04/09/2022 10:00:02 AM This report has been signed electronically. Note Initiated On: 04/09/2022 8:44 AM Number of Addenda: 0 I attest to the content of the Intraoperative Record and orders documented therein, exceptions below {[id number]}
[2022-04-09 11:24] LABS: Hematocrit (blood only) 28.4 % (40.1-51.0); Hemoglobin 9.5 g/dl (14.0-18.0)
[2022-04-09] MEDS: LACTATED RINGER'S 1,000 ML IV SCH (12:26)
--- NOTE | 2022-04-09 14:03 | Hospitalist Progress Note ---
Date of Service April 09, 2022 Assessment & Plan (1) GI bleed: Plan: Patient is now s/p EGD and colonoscopy Colonoscopy showed a rectal angiosyplasia and ulcer with a stigmata of recent bleed, which was cautherized EGD showed evidence of Barrets, no evidence of bleed Hb is stable repeat h and h Advance diet appreciate GI recs Repeat H/H 11 AM: 11.7 (2) Heart failure: Plan: - Presumed, given medication history of Lasix 20 mg daily, Coreg 3.125 mg daily, baby aspirin daily. - Patient did not have these medications this morning, will hold for now given ongoing blood loss. Plan: - Admit to PCu. - SCDs for DVT PPx, chemo PPx contraindicated. - Full code. Admission and Anticipated Discharge Date Admission Date: April 08, 2022 Subjective patient seen and examined today, just came back from EGD and colonoscopy Physical Exam Physical Exam: The patient is awake, alert and oriented 3, well developed and well nourished, normocephalic and atraumatic, lying in bed and in no acute distress. HEENT--PERRL, EOMI, mucous membranes and oropharynx mildly dry Neck--supple. No JVD. No bruits. Thyroid normal, trachea midline, no adenopathy. Heart--normal S1 and S2. No murmurs, rubs or gallops. Lungs--clear bilaterally, no respiratory distress, no accessory muscle use. Abdomen--normal bowel sounds and soft. Mild epigastric and left sided abdominal pain Extremities--no cyanosis or clubbing. No edema. Dermatologic--normal skin turgor, normal color, no abnormal lymph nodes, no rash. Neurologic--cranial nerves II through XII grossly intact. Rheumatologic--normal range of motion. Psychiatric--normal affect. Results & Data Results & Data ([facility]) Vital Signs (Past 12 Hours) Vital Signs Temp Pulse Pulse Pulse Resp BP BP 04/09/22 12:10 84 04/09/22 11:43 97.9 F 67 18 107/64 04/09/22 10:19 97.9 F 77 17 120/71 04/09/22 10:12 74 18 121/72 04/09/22 09:52 71 71 18 125/65 04/09/22 09:37 82 16 113/66 04/09/22 08:50 99.1 F 86 18 109/70 04/09/22 08:48 99.1 F 86 18 109/70 04/09/22 07:23 97.9 F 79 18 113/72 04/09/22 07:11 97.9 F 79 18 113/72 04/09/22 06:00 80 16 103/67 04/09/22 05:47 98.1 F 79 16 103/67 04/09/22 05:30 80 16 100/64 04/09/22 05:17 98.1 F 84 16 101/64 04/09/22 05:02 98.1 F 84 16 101/64 04/09/22 05:00 98.1 F 76 16 101/64 04/09/22 04:45 97.5 F L 90 15 99/65 L 04/09/22 03:30 98.2 F 84 18 98/61 L 04/09/22 03:00 91 H 99/65 L 04/09/22 02:30 90 102/68 Pulse Ox 04/09/22 12:10 04/09/22 11:43 96 04/09/22 10:19 97 04/09/22 10:12 98 04/09/22 09:52 99 04/09/22 09:37 97 04/09/22 08:50 98 04/09/22 08:48 98 04/09/22 07:23 98 04/09/22 07:11 98 04/09/22 06:00 97 04/09/22 05:47 97 04/09/22 05:30 97 04/09/22 05:17 97 04/09/22 05:02 97 04/09/22 05:00 97 04/09/22 04:45 95 04/09/22 03:30 96 04/09/22 03:00 04/09/22 02:30 PG Care Time/CCT Total # of Minutes Spent Total Time Spent with Patient: Total time spent is greater than 50% in coordination of care (as documented) at patient's floor/unit and/or counseling patient: Coding Level of Care Code 24785 Subseq Hosp Care Lvl 2 Diagnoses GI bleed K92.2 GI bleed type/associated pathology: unspecified gastrointestinal hemorrhage type Heart failure I50.9 Time Spent (min) 35 (1) GI bleed GI bleed type/associated pathology: unspecified gastrointestinal hemorrhage type Qualified Code(s): K92.2 - Gastrointestinal hemorrhage, unspecified
[2022-04-09] MEDS: PANTOprazole 40 MG TAB PO SCH (14:38)
[2022-04-10] MEDS: PANTOprazole 40 MG TAB PO SCH (09:40)
--- NOTE | 2022-04-10 14:30 | Hospitalist Progress Note ---
Date of Service April 10, 2022 Assessment & Plan (1) GI bleed: Plan: Patient is now s/p EGD and colonoscopy Colonoscopy showed a rectal angiosyplasia and ulcer with a stigmata of recent bleed, which was cautherized EGD showed evidence of Barrets, no evidence of bleed Hb is stable repeat h and h Advance diet appreciate GI recs (2) Chronic congestive heart failure: Plan: Unsure if its systolic or diastolic No ECHO on record Patient apperas compensated continue home meds (3) Acute blood loss anemia: Plan: Secondary to GI bleed Hb stable following colonoscopy and cautherization of angiosyplasia (4) Angiodysplasia of colon with hemorrhage: Plan: Seen on colonoscopy cautherized with argon (5) Heart failure: Plan: - Presumed, given medication history of Lasix 20 mg daily, Coreg 3.125 mg daily, baby aspirin daily. - Patient did not have these medications this morning, will hold for now given ongoing blood loss. Plan: - Admit to PCu. - SCDs for DVT PPx, chemo PPx contraindicated. - Full code. Admission and Anticipated Discharge Date Admission Date: April 08, 2022 Subjective patient seen and examined today, no blood in stool, denies abdominal pain Review of Systems Review of Systems: All systems reviewed are negative, apart from the ones contained in the history. Physical Exam Physical Exam: The patient is awake, alert and oriented 3, well developed and well nourished, normocephalic and atraumatic, lying in bed and in no acute distress. HEENT--PERRL, EOMI, mucous membranes and oropharynx mildly dry Neck--supple. No JVD. No bruits. Thyroid normal, trachea midline, no adenopathy. Heart--normal S1 and S2. No murmurs, rubs or gallops. Lungs--clear bilaterally, no respiratory distress, no accessory muscle use. Abdomen--normal bowel sounds and soft. Mild epigastric and left sided abdominal pain Extremities--no cyanosis or clubbing. No edema. Dermatologic--normal skin turgor, normal color, no abnormal lymph nodes, no rash. Neurologic--cranial nerves II through XII grossly intact. Rheumatologic--normal range of motion. Psychiatric--normal affect. Results & Data Results & Data ([facility]) Vital Signs (Past 12 Hours) Vital Signs Temp Pulse Resp BP Pulse Ox 04/10/22 11:59 98.1 F 83 18 120/74 97 04/10/22 07:28 98.1 F 69 18 115/72 99 04/10/22 02:44 97.9 F 67 18 114/69 93 PG Care Time/CCT Total # of Minutes Spent Total Time Spent with Patient: Total time spent is greater than 50% in coordination of care (as documented) at patient's floor/unit and/or counseling patient: Coding Level of Care Code 50642 Subseq Hosp Care Lvl 2 Diagnoses GI bleed K92.2 GI bleed type/associated pathology: unspecified gastrointestinal hemorrhage type Heart failure I50.9 Chronic congestive heart failure I50.9 Acute blood loss anemia D62 Angiodysplasia of colon with hemorrhage K55.21 Time Spent (min) 35 (1) GI bleed GI bleed type/associated pathology: unspecified gastrointestinal hemorrhage type Qualified Code(s): K92.2 - Gastrointestinal hemorrhage, unspecified
[2022-04-10 17:33] LABS: Appearance Urine Clear (Clear); Bacteria Urine Automated 2+ (Negative); Bilirubin Urine Negative (Negative); Blood Urine 2+ (Negative); Color Urine Yellow; Epithelial Cell Urine Auto 0-5 /lpf (0-5); Glucose Urine UA Negative (Negative); Ketones Urine Negative (Negative); Leukocyte Esterase Urine 3+ (Negative); Nitrite Urine Negative (Negative); Protein Urine Negative (Negative); RBC Urine Automated 0-4 /hpf (0-4); Specific Gravity Urine 1.004 (1.000-1.030); Urobilinogen Urine Negative (Negative); WBC Urine Automated >30 /hpf (0-5); pH Urine 7.5 (4.5-7.5)
[2022-04-11 08:51] LABS: Hematocrit (blood only) 30.3 % (40.1-51.0); Hemoglobin 9.8 g/dl (14.0-18.0); Mean Corpuscular Hemoglobin 29.9 pg (25.0-34.0); Mean Corpuscular Hgb Conc 32.3 g/dL (32.0-36.0); Mean Corpuscular Volume 92.4 fL (80.0-100.0); Mean Platelet Volume 9.5 fL (9.4-12.4); Platelet Count 216 K/uL (130-400); RDW Coefficient of Variation 15.2 % (11.5-14.5); RDW Standard Deviation 51.3 fL (36.4-46.3); Red Blood Count 3.28 M/uL (4.63-6.08); White Blood Count 7.25 K/ul (4.8-10.8)
[2022-04-11] MEDS: PANTOprazole 40 MG TAB PO SCH (09:46)
--- NOTE | 2022-04-11 14:57 | Discharge Summary ---
Date of Service April 11, 2022 Admission HPI Per Admitting Provider Rohan Olmos is a 66-year-old male with cognitive impairment and presumed heart failure who presents today with complaints of bloody BMs for the last 12 hours. Patient states last evening before bed, he had a bowel movement and reported to his mother there was a large amount of bright red blood in it. His mother woke up to use the bathroom several times at the night and found the toilet filled with large amount of bright red blood on multiple occasions. This is associated with epigastric pain that does not radiate. Patient has apparently been complaining of mild epigastric pain intermittently for the past month, and about 1 month ago did have an episode of bright red blood per rectum, however it is unclear how often this is happened over the past month. Since arrival to the ED, he is started to feel mildly dizzy and a little bit short of breath, but denies chest pain or palpitations. He does take a baby aspirin daily, but has not been taking any NSAIDs and denies any alcohol use. Per family, patient experienced a similar event several years ago, at that time colonoscopy was performed and no bleeding source was identified. No personal family history of GI malignancies, bleeding disorders. Patient is not aware that he has any hemorrhoids. A STEPHEN was performed by ED provider, no active bleeding hemorrhoid was identified and no obvious mass was felt. In ED, he is hemodynamically stable. Labs significant for an hemoglobin of 12.7, MCV and MCHC indicative of normocytic anemia. BUN 29. All other labs within normal limits. CT A/P showed mixed attenuation collection in the rectum which may represent hemorrhagic material, underlying mass cannot be excluded. ED Course: PPI drip started, hospital service consulted. After my initial evaluation of patient, he was ambulated into the bathroom and had what seems to be a vasovagal syncopal episode. An urgent troponin and EKG were ordered, as well as repeat Hgb and 1L NS bolus. Repeat trop 2.9 ( same as initial), Hgb 11.7. Principal Diagnosis GI bleed Discharge Exam The patient is awake, alert and oriented 3, well developed and well nourished, normocephalic and atraumatic, lying in bed and in no acute distress. HEENT--PERRL, EOMI, mucous membranes and oropharynx mildly dry Neck--supple. No JVD. No bruits. Thyroid normal, trachea midline, no adenopathy. Heart--normal S1 and S2. No murmurs, rubs or gallops. Lungs--clear bilaterally, no respiratory distress, no accessory muscle use. Abdomen--normal bowel sounds and soft. Mild epigastric and left sided abdominal pain Extremities--no cyanosis or clubbing. No edema. Dermatologic--normal skin turgor, normal color, no abnormal lymph nodes, no rash. Neurologic--cranial nerves II through XII grossly intact. Rheumatologic--normal range of motion. Psychiatric--normal affect. Discharge Data Allergies Allergy/AdvReac Type Severity Reaction Status Date / Time No Known Allergies Allergy Unknown Verified 08/27/05 12:47 Consultations 04/08/22 09:56 ED Decision to Admit Stat 04/08/22 12:59 Consult Gastroenterology Routine Procedures Performed Operation Date: 04/09/22 16:30 Actual Procedures p EGD Biopsy Cytology - Uziel De La O MD s Colonoscopy Hemostasis - Uziel De La O MD s Colonoscopy Biopsy Cytology - Uziel De La O MD Ordered Studies 04/08/22 08:01 CT abd pelvis IV con only Stat Hospital Course (1) GI bleed: Patient is now s/p EGD and colonoscopy Colonoscopy showed a rectal angiosyplasia and ulcer with a stigmata of recent bleed, which was cautherized EGD showed evidence of Barrets, no evidence of bleed Hb is stable repeat h and h Advance diet appreciate GI recs (2) Chronic congestive heart failure: Unsure if its systolic or diastolic No ECHO on record Patient apperas compensated continue home meds (3) Acute blood loss anemia: Secondary to GI bleed Hb stable following colonoscopy and cautherization of angiosyplasia (4) Angiodysplasia of colon with hemorrhage: Seen on colonoscopy cautherized with argon (5) Heart failure: - Presumed, given medication history of Lasix 20 mg daily, Coreg 3.125 mg daily, baby aspirin daily. - Patient did not have these medications this morning, will hold for now given ongoing blood loss. Plan - Admit to [facility]. - SCDs for DVT PPx, chemo PPx contraindicated. - Full code. Total Time Total Time Spent Total Time Spent (In Minutes): 35 Discharge Plan Discharge Items Patient Disposition: Home - Self-Care Reason For Visit: LGI BLEED Discharge Diagnosis: gi bleed Activity: Resume your previous activity Non-emergency contact: Primary Care Provider and Airline Counter Agent Call non-emergency contact if: you have any medication questions Follow-up/Referrals: Lazaro Jason [Primary Care Provider] - Diet: Regular Addtl Attending Provider Instructions: please make appointment to follow up with your short goods drier as soon as possible Pending Studies at Discharge: No Stand-Alone Forms: [facility] Pay, Smoking Cessation Medications and DC Order Prescriptions: New pantoprazole 40 mg Tablet,Delayed Release (Dr/Ec) 40 mg PO QAM 30 Days Qty: 30 0RF Continued carvedilol 3.125 mg tablet 3.125 mg PO DAILY furosemide 20 mg tablet 20 mg PO DAILY Centrum Silver Men 1 tab PO DAILY aspirin 81 mg PO DAILY Norvasc 5 mg PO DAILY Discharge Orders: Discharge Order (Routine); Ordered 04/11/22 Ordered By: Ashley Bain Admission Data Admit Date/Time: 04/08/22 11:07 Attending Provider: Ashley Bain Admit Provider: Meche Jiang Primary Care Provider: Lazaro Jason Other Providers: Emeka Adkins ; Uziel De La O Coding Level of Care Code D/C DAY MANAGEMENT >30 MINS Diagnoses GI bleed K92.2 GI bleed type/associated pathology: unspecified gastrointestinal hemorrhage type Chronic congestive heart failure I50.9 Acute blood loss anemia D62 Angiodysplasia of colon with hemorrhage K55.21 Heart failure I50.9 Time Spent (min) 35
--- NOTE | 2022-04-12 13:05 | Pharmacy Report ---
ED Pharmacist Culture FollowUP - Culture Follow Up Note Date of Service: April 12, 2022 Notes:: * Received final urine culture that grew E. coli. Spoke with Dr. Bain, who discharged patient yesterday, and despite not having symptoms would like to treat with Cephalexin 500 mg PO BID x 5 days (QTY 10, RF 0). * Spoke with patient who denies any symptoms but agreed to treatment. * Prescription for above was called into [facility] in [place] at the patient's request.
== END 2022-04-11 17:12 | disposition home or self-care (01) | DRG 378 ==
LOC: ED 07:45 → 2S 11:07 → SUATTDRO 11:07 → 2S 12:26